=== PATIENT | male | born 1980 | race Hispanic/Latino ===

== ENCOUNTER 2018-01-17 18:26 | Emergency (ER) | payer SELFPAY | END 2018-01-17 19:12 | disposition home or self-care (01) | LOC: BURERS 18:26 | DX: S61.211D Laceration without foreign body of left index finger without damage to nail, subsequent encounter (principal); S61.213D Laceration without foreign body of left middle finger without damage to nail, subsequent encounter; S61.215D Laceration without foreign body of left ring finger without damage to nail, subsequent encounter ==